=== PATIENT | male | born 1960 | race Caucasian/White ===

== ENCOUNTER → 2022-01-08 | Outpatient (CLI) | LOC: M SOG 07:56 | PROVIDERS: ATTEND Orthopaedic Surgery Adult Reconstructive Orthopaedic Surgery | DX: M17.12 Unilateral primary osteoarthritis, left knee (principal); M25.562 Pain in left knee ==

== ENCOUNTER 2022-02-09 12:32 | Day surgery (SDC) | payer MEDICARE ==
[~2022-02-09] VITALS: Ht 177.8 cm; Wt 108.9 kg
[~2022-02-09 12:32] MED LIST: AMLO1TAB25 PO; BAYE81TA10 PO; CLOP75TA2 PO; DEXI60CA2 PO; EZET10TA21 PO; FURO20TA2 PO; GABA-283 PO; HUMU500S2 SC; HUMU500S2 SQ; LABE20TAB PO; LEVO175T2 PO; LOSA100T45 PO; PRAM0.252 PO; PRAM0.5T4 PO; SIMV40TA20 PO; SPIR-10 PO; TADA5TAB PO; VASC1CAP2 PO
[2022-02-09] MEDS ORDERED: ONDANSETRON 4MG/2ML VIAL IV ONE (14:00)
[2022-02-09] MEDS ORDERED: CelecoXIB 400 MG CAP PO ONE (14:00)
[2022-02-09] MEDS ORDERED: GABAPENTIN 300 MG CAP PO ONE (14:00)
[2022-02-09] MEDS ORDERED: ACETAMINOPHEN 500 MG TAB PO ONE (14:00)
[2022-02-09] MEDS ORDERED: MIDAZOLAM INJ 2MG/2ML VIAL (J2250 PER 1MG) As Ordered ONE (15:58)
[2022-02-09] MEDS ORDERED: fentaNYL 100 MCG/2 ML INJECTION As Ordered ONE (15:59)
[2022-02-09] MEDS ORDERED: LIDOCAINE 2% 100MG/5ML SDV (FOR ANES.) As Ordered ONE (16:00)
[2022-02-09] MEDS ORDERED: EPINEPHrine 1MG/ML INJ 30ML MD-VIAL As Ordered ONE (16:09)
[2022-02-09] MEDS ORDERED: BUPIVACAINE/EPIN 0.5% 30 ML VIAL As Ordered ONE (16:09)
[2022-02-09] MEDS ORDERED: PHENYLephrine 500MCG 5ML (100MCG/ML) SYRINGE As Ordered ONE (16:38)
[2022-02-09] MEDS ORDERED: ePHEDrine SULFATE 25 MG/5 ML(5MG/ML) SYRINGE As Ordered ONE (16:38)
[2022-02-09] MEDS ORDERED: propofoL 200 MG/20 ML VIAL As Ordered ONE (16:55)
[2022-02-09] MEDS ORDERED: dexameTHASONE 4 MG/ML 1ML VIAL (J1100 PER 1MG) As Ordered ONE (16:55)
[2022-02-09] MEDS ORDERED: ALBUTEROL 6.7GM INHALER **FOR ANES. CART/OMNICELL ONLY As Ordered ONE (17:10)
[2022-02-09] MEDS ORDERED: PHENYLEPHRINE 10MG/ML 1ML VIAL (J2370 PER 1) As Ordered ONE (17:12)
[2022-02-09] MEDS ORDERED: fentaNYL 100 MCG/2 ML INJECTION IV PRN ×2 (17:25→19:45)
[2022-02-09] MEDS ORDERED: LR 1,000 ML IV SCH (17:25)
[2022-02-09] MEDS ORDERED: oxyCODONE 5MG TAB PO PRN ×2 (17:25→19:45)
[2022-02-09] MEDS ORDERED: MORPHINE 2 MG/ML 1ML VIAL IV PRN ×2 (17:25→19:45)
[2022-02-09] MEDS ORDERED: ONDANSETRON 4MG/2ML VIAL IV PRN (17:25)
[2022-02-09 19:22] VITALS: BP 141/72
== END 2022-02-09 19:48 | disposition home or self-care (01) ==
LOC: M SDC 12:32
PROVIDERS: ATTEND Orthopaedic Surgery Adult Reconstructive Orthopaedic Surgery
DX: M23.301 Other meniscus derangements, unspecified lateral meniscus, left knee (principal); M23.304 Other meniscus derangements, unspecified medial meniscus, left knee; M94.262 Chondromalacia, left knee; I12.9 Hypertensive chronic kidney disease with stage 1 through stage 4 chronic kidney disease, or unspecified chronic kidney disease; E78.5 Hyperlipidemia, unspecified; I25.10 Atherosclerotic heart disease of native coronary artery without angina pectoris; E11.9 Type 2 diabetes mellitus without complications; Z98.61 Coronary angioplasty status; N18.9 Chronic kidney disease, unspecified; Z88.8 Allergy status to other drugs, medicaments and biological substances; Z79.02 Long term (current) use of antithrombotics/antiplatelets; Z79.4 Long term (current) use of insulin; Z79.899 Other long term (current) drug therapy; Z87.891 Personal history of nicotine dependence
CPT/HCPCS: 29880; J0171; J1100; J2250; J2370; J2405; J3010